=== PATIENT | male | born 1970 | race Caucasian/White ===

== ENCOUNTER 2018-12-14 17:13 | Emergency (ER) | payer BC ==
[2018-12-14 17:18] VITALS: BP 166/99
[2018-12-14] MEDS ORDERED: Sulfamethox/Trimethoprim DS 800/160* TAB PO ONE (20:27)
--- NOTE | 2018-12-14 20:30 | ED ---
Skin Complaint - HPI Summary HPI Summary: Patient complains of redness and swelling under her left axilla 2 days. Denies prior history of abscess. States positive purulent drainage. Denies fever, cough, sore throat, CP, SOB, N/V/V abdominal pain, change in urine, change in BM. Denies medical history. - History of Current Complaint Chief Complaint: EDRashSkinAbscess Time Seen by Provider: 12/14/18 18:41 Stated Complaint: CYST UNDER LT ARM PER PT Hx Obtained From: Patient Onset/Duration: Started Days Ago Skin Exposure Onset/Duration: Days Ago Timing: Constant Onset Severity: Mild Current Severity: Mild Pain Intensity: 3 Pain Scale Used: 0-10 Numeric Skin Location: Discrete Aggravating Symptom(s): Touch Alleviating Symptom(s): Nothing Associated Signs & Symptoms: Drainage - Allergy/Home Medications Allergies/Adverse Reactions: Allergies Allergy/AdvReac Type Severity Reaction Status Date / Time No Known Allergies Allergy Verified 12/14/18 17:18 PMH/Surg Hx/FS Hx/Imm Hx Endocrine/Hematology History: Denies: Hx Anticoagulant Therapy Cardiovascular History: Denies: Hx Pacemaker/ICD History: Denies: Hx Dialysis Sensory History: Denies: Hx Eye Prosthesis Opthamlomology History: Denies: Hx Legally Blind EENT History: Denies: Hx Deafness Neurological History: Denies: Hx Dementia Infectious Disease History: No Infectious Disease History: Denies: Traveled Outside the [place] in Last 30 Days - Family History Known Family History: Positive: Non-Contributory - Social History Alcohol Use: Occasionally Hx Substance Use: No Hx Tobacco Use: No Review of Systems Constitutional: Negative Eyes: Negative ENT: Negative Cardiovascular: Negative Respiratory: Negative Gastrointestinal: Negative Genitourinary: Negative Musculoskeletal: Negative Skin: Other Neurological: Negative Psychological: Normal All Other Systems Reviewed And Are Negative: Yes Physical Exam - Summary Physical Exam Summary: 4 cm x 4 cm abscess in left axilla with apical fluctuance. Triage Information Reviewed: Yes Vital Signs On Initial Exam: Initial Vitals Temp Pulse Resp BP Pulse Ox 97.1 F 87 16 166/99 99 12/14/18 17:15 12/14/18 17:15 12/14/18 17:15 12/14/18 17:15 12/14/18 17:15 Vital Signs Reviewed: Yes Appearance: Positive: Well-Appearing Skin: Positive: Warm Head/Face: Positive: Normal Head/Face Inspection Eyes: Positive: Normal Neck: Positive: Supple Respiratory/Lung Sounds: Positive: Clear to Auscultation Cardiovascular: Positive: Normal Abdomen Description: Positive: Nontender Musculoskeletal: Positive: Normal Neurological: Positive: Normal Psychiatric: Positive: Normal AVPU Assessment: Alert - [place] Coma Scale Best Eye Response: 4 - Spontaneous Best Motor Response: 6 - Obeys Commands Best Verbal Response: 5 - Oriented Coma Scale Total: 15 Procedures - Sedation Patient Received Moderate/Deep Sedation with Procedure: No - Incision and Drainage 1 Site: left axilla Anesthesia: Local, Lidocaine Instrument(s): Scalpel Diagnostics - Vital Signs Vital Signs Temp Pulse Resp BP Pulse Ox 12/14/18 17:15 97.1 F 87 16 166/99 99 - Laboratory Lab Statement: Any lab studies that have been ordered have been reviewed, and results considered in the medical decision making process. Course/Dx - Course Course Of Treatment: Patient complains of redness and swelling under her left axilla 2 days. Denies prior history of abscess. States positive purulent drainage. Denies fever, cough, sore throat, CP, SOB, N/V/V abdominal pain, change in urine, change in BM. Denies medical history. Vital signs within normal limits. I&D. Rx for Bactrim. - Diagnoses Provider Diagnoses: Abscess Discharge ED - Sign-Out/Discharge Documenting (check all that apply): Patient Departure - Discharge Plan Condition: Stable Disposition: HOME Prescriptions: Sulfamethox/Trimethoprim DS* [Bactrim DS 800/160 TAB*] 1 tab PO BID 10 Days #20 tab Patient Education Materials: Abscess (ED) Referrals: No Primary Care Phys,NOPCP [Primary Care Provider] - Additional Instructions: Take antibiotics as directed. Use warm compresses or warm shower water on abscess to facilitate draining. Keep the incision open by pressing on abscess to facilitate draining. Use Hibiclens as soap on the left arm pit. Return to the ED for any worsening symptoms. - Billing Disposition and Condition Condition: STABLE Disposition: Home - Attestation Statements Provider Attestation: I was available for consultation for this patient. I did not evaluate the patient, or participate in any medical decision making or disposition decisions unless I am specifically named in the chart as having consulted on the patient. If I have consulted on the patient, please see my own ED note on the patient encounter. Telly Pineda MD
--- NOTE | 2018-12-15 05:48 | ED ---
Imaging and Labs Follow Up Follow Up Type: Labs/Cultures Labs/Culture Result: left axillary wound culture grew MRSA positive, staph positive. Patient Communication/Plan: Patient was placed on Bactrim prior to discharge Nothing further required. Provider Diagnoses: Abscess
== END 2018-12-14 20:43 | disposition home or self-care (01) ==
LOC: ED 17:13
DX: L02.412 Cutaneous abscess of left axilla (principal); A49.02 Methicillin resistant Staphylococcus aureus infection, unspecified site; R60.9 Edema, unspecified
CPT/HCPCS: 10060; 87070; 87077; 87186; 87205; 87640; 87641; 99282; A9270-GY

== ENCOUNTER 2019-05-10 20:17 | Emergency (ER) | payer BC ==
[2019-05-10 20:54] VITALS: BP 86/52
[2019-05-10] MEDS ORDERED: Sulfamethox/Trimethoprim DS 800/160* TAB PO ONE (21:03)
--- NOTE | 2019-05-10 21:03 | UC ---
Skin Complaint HPI - HPI Summary HPI Summary: 48 yo man with hx of MRSA in December 2018, responded well to Bactrim. He developed an area of erythema and induration above the umbilicus and to the left about 2 days ago--nodule is firm and hard and he is hoping to start antibiotics to stave off abscess. No fever, chills or systemic signs of illness. - History of Current Complaint Chief Complaint: UCSkin Time Seen by Provider: 05/10/19 20:55 Stated Complaint: SKIN COMPLAINT Hx Obtained From: Patient Onset/Duration: Gradual Onset, Lasting Days - 2 Timing: Constant Onset Severity: Mild Current Severity: Moderate Pain Intensity: 6 Location: Discrete - right upper abdomen. Character: Pain, Redness, Raised, Painful Aggravating Factor(s): Touch Alleviating Factor(s): Nothing Associated Signs & Symptoms: Positive: Tenderness. Negative: Drainage Related History: Other: - past hx of MRSA - Allergy/Home Medications Allergies/Adverse Reactions: Allergies Allergy/AdvReac Type Severity Reaction Status Date / Time No Known Allergies Allergy Verified 05/10/19 20:49 Home Medications: Home Medications Sulfamethox/Trimethoprim DS* [Bactrim DS 800/160 TAB*] 1 tab PO BID #20 tab 06/25 [Rx] PMH/Surg Hx/FS Hx/Imm Hx Previously Healthy: Yes GI/ History: Gastrointestional Bleed - past ulcer required surgery Other History Of: Negative For: Anticoagulant Therapy - Surgical History Surgical History: Yes - bleeding ulcer treating surgically - Family History Known Family History: Positive: Other - no family members have MRSA Negative: Cardiac Disease, Diabetes, Renal Disease - Social History Occupation: Employed Full-time Lives: With Family Alcohol Use: None Substance Use Type: None Smoking Status (MU): Never Smoked Tobacco Review of Systems All Other Systems Reviewed And Are Negative: Yes Constitutional: Positive: Negative Skin: Positive: Other - sore on left upper abdomen Eyes: Positive: Negative ENT: Positive: Negative Respiratory: Positive: Negative Cardiovascular: Positive: Negative Gastrointestinal: Positive: Negative Genitourinary: Positive: Negative Motor: Positive: Negative Neurovascular: Positive: Negative Musculoskeletal: Positive: Negative Neurological/Mental Status: Positive: Negative Psychological: Positive: Negative Is Patient Immunocompromised?: No Physical Exam Triage Information Reviewed: Yes Appearance: Well-Appearing, No Pain Distress Vital Signs: Initial Vital Signs Temp 98 F 05/10/19 20:50 Pulse 59 05/10/19 20:50 Resp 16 05/10/19 20:50 BP 86/52 05/10/19 20:50 Pulse Ox 99 05/10/19 20:50 ENT: Positive: Pharynx normal Neck: Positive: Supple, Nontender, No Lymphadenopathy Respiratory: Positive: Lungs clear Cardiovascular: Positive: RRR, No Murmur Abdomen Description: Positive: Nontender, No Organomegaly, Soft, Other: - upper midline scar Musculoskeletal Exam: Normal Neurological Exam: Normal Psychological Exam: Normal Skin Exam: Other - To the left of his upper abdominal scar, 15mm area of erythema and induration without drainage. Central eschar. No associated cellulitis. Course/Dx - Course Course Of Treatment: bactrim for treatment of infection consistent with MRSA. Compress, observe and follow up if abscess forma. - Differential Diagnoses - Skin Complaint Differential Diagnoses: Abscess, Cellulitis, MRSA - Diagnoses Provider Diagnosis: Abscess, trunk Discharge ED - Sign-Out/Discharge Documenting (check all that apply): Patient Departure All imaging exams completed and their final reports reviewed: No Studies - Discharge Plan Condition: Stable Disposition: HOME Prescriptions: Sulfamethox/Trimethoprim DS* [Bactrim DS 800/160 TAB*] 1 tab PO BID #20 tab Patient Education Materials: Abscess (ED) Referrals: No Primary Care Phys,NOPCP [Primary Care Provider] - Additional Instructions: Begin bactrim for treatment of suspected MRSA. As discussed, early use of the antibiotic might prevent progression to abscess, but if you develop an increasing area of softness with purulent pointing, please return for incision and drainage. Use warm compresses to the area to promote healing, applying for 5 minutes about 3 or 4 times per day until resolved. - Billing Disposition and Condition Condition: STABLE Disposition: Home
== END 2019-05-10 21:35 | disposition home or self-care (01) ==
LOC: UCEAST 20:17
DX: L02.219 Cutaneous abscess of trunk, unspecified (principal)
CPT/HCPCS: 99212; A9270-GY; G0463